=== PATIENT | female | born 1995 | race Two or more races ===

== ENCOUNTER 2022-12-02 21:01 | Emergency (ER) | payer SELFPAY ==
[~2022-12-02] VITALS: Ht 167.6 cm; Wt 72.0 kg
[2022-12-02 21:11] VITALS: BP 148/78
[2022-12-03] MEDS ORDERED: PERTUSS(ACELL),DIPH,TET VAC/PF 0.5 ML SYRINGE IM. ONE (00:45)
[2022-12-03] MEDS ORDERED: SODIUM CHLORIDE 0.9% 250 ML IRRIG SOLUTION BOTTLE IRRIG ONE (00:45)
[2022-12-03] MEDS ORDERED: HYDROCODONE/ACETAMINOPHEN 5-325 MG TABLET PO ONE (00:45)
[2022-12-03] MEDS ORDERED: TRAM-559 PO (00:56)
== END 2022-12-03 01:25 | disposition home or self-care (01) ==
LOC: EMS 21:05
DX: S00.81XA Abrasion of other part of head, initial encounter (principal); S00.93XA Contusion of unspecified part of head, initial encounter; S00.531A Contusion of lip, initial encounter; Y08.89XA Assault by other specified means, initial encounter; Y93.89 Activity, other specified; Y92.512 Supermarket, store or market as the place of occurrence of the external cause; Y99.8 Other external cause status
CPT/HCPCS: 90471; 90715; 99283